=== PATIENT | female | born 1975 | race Caucasian/White ===

== ENCOUNTER 2016-05-10 13:50 | Emergency (ER) | payer MEDICAID ==
[~2016-05-10] VITALS: Wt 76.2 kg
[~2016-05-10 13:50] MED LIST: ACET500T98
[2016-05-10] MEDS ORDERED: EXCED PO (18:00)
[2016-05-10 18:24] LABS: ADD SCAN DIFF NO
--- NOTE | 2016-05-10 18:28 | ERD ---
ER Documentation Chief Complaint Date/Time DATE: 05/10/16 TIME: 18:26 Chief Complaint DIZZINESS AND SYNCOPE SINCE LAST NIGHT. FOR 30 MIN. NO TRAUMA. NO NEURO DEF ROS All systems reviewed and are negative except as per history of present illness. Medications Home Meds Reported Medications Acetaminophen/Aspirin/Caffeine* (Excedrin*) 1 Tab Tab, 1 TAB PO DAILY Y for PRN , TAB 05/10/16 Discontinued Reported Medications Acetaminophen (Tylenol) 500 Mg Tab 06/30/10 Allergies Allergies: Coded Allergies: No Known Drug Allergy (Verified Allergy, Mild, 05/10/16) PMhx/Soc Reviewed in chart. As per HPI History of Surgery: Yes (CHOLECYSTECTOMY) Anesthesia Reaction: No Hx Neurological Disorder: Yes (Headaches) Hx Respiratory Disorders: No Hx Cardiac Disorders: No Hx Psychiatric Problems: No Hx Miscellaneous Medical Probl: No Hx Alcohol Use: No Hx Substance Use: No Hx Tobacco Use: No Smoking Status: Never smoker FmHx No stroke, NV, cancer or subarachnoid Physical Exam Vitals Vital Signs Date Time Temp Pulse Resp B/P Pulse Ox O2 Delivery O2 Flow Rate FiO2 05/10/16 20:45 98.5 88 20 112/72 98 Room Air 05/10/16 19:02 92 20 116/72 98 Room Air 05/10/16 18:00 Nasal Cannula 2 05/10/16 14:03 98.5 102 20 117/65 98 Physical Exam Const: [] Head: Atraumatic Eyes: Normal Conjunctiva ENT: Normal External Ears, Nose and Mouth. Neck: Full range of motion..~ No meningismus. Resp: Clear to auscultation bilaterally Cardio: Regular rate and rhythm, no murmurs Abd: Soft, non tender, non distended. Normal bowel sounds Skin: No petechiae or rashes Back: No midline or flank tenderness Ext: No cyanosis, or edema Neur: Awake and alert Psych: Normal Mood and Affect Result Diagram: 05/10/16 1800 05/10/16 1800 Results 24 hrs Laboratory Tests Test 05/10/16 17:50 05/10/16 18:00 05/10/16 18:21 Urine Amphetamines Screen Negative Urine Bacteria MANY Urine Barbiturates Negative Urine Benzodiazepines Screen Negative Urine Bilirubin NEGATIVE Urine Cannabinoids Negative Urine Clarity CLOUDY Urine Cocaine Screen Negative Urine Color LT. YELLOW Urine Glucose NEGATIVE% Urine Hemoglobin 3+ Urine Ketones NEGATIVE Urine Leukocyte Esterase 1+ Urine Microscopic RBC 25-50/HPF Urine Microscopic WBC 25-50/HPF Urine Nitrite NEGATIVE Urine Opiates Screen Negative Urine Specific [place] 1.010 Urine Squamous Epithelial Cells MANY Urine Total Protein TRACE Urine Urobilinogen 1.0 E.U./dL Urine pH 7.0 Activated Partial Thromboplast Time 27.5Sec Alanine Aminotransferase (ALT/SGPT) 42IU/L Albumin 4.3g/dl Albumin/Globulin Ratio 1.30 Alkaline Phosphatase 81IU/L Anion Gap 19 Aspartate Amino Transf (AST/SGOT) 50IU/L Basophils # 0.010^3/ul Basophils % 0.3% Blood Urea Nitrogen 11mg/dl Calcium Level 8.2mg/dl Carbon Dioxide Level 25mmol/L Chloride Level 102mmol/L Creatinine 0.69mg/dl Direct Bilirubin 0.00mg/dl Eosinophils # 0.210^3/ul Eosinophils % 1.4% Globulin 3.30g/dl Glucose Level 94mg/dl Hematocrit 36.0% Hemoglobin 11.8g/dl INR International Normalized Ratio 1.09 Indirect Bilirubin 0.3mg/dl Lymphocytes # 3.210^3/ul Lymphocytes % 20.9% Mean Corpuscular Hemoglobin 27.0pg Mean Corpuscular Hemoglobin Concent 32.8g/dl Mean Corpuscular Volume 82.4fl Mean Platelet Volume 10.7fl Monocytes # 1.510^3/ul Monocytes % 9.9% Neutrophils # 10.210^3/ul Neutrophils % 67.1% Nucleated Red Blood Cells # 0.010^3/ul Nucleated Red Blood Cells % 0.0/100WBC Platelet Count 43611^3/UL Potassium Level 4.1mmol/L Prothrombin Time 14.1Sec Prothrombin Time Ratio 1.1 Red Blood Count 4.3710^6/ul Red Cell Distribution Width 14.6% Sodium Level 142mmol/L Total Bilirubin 0.3mg/dl Total Protein 7.6g/dl Troponin I < 0.010ng/ml White Blood Count 15.210^3/ul Bedside Glucose 92mg/dL Current Medications Medications (Trade) Dose Ordered Sig/Kasia Route PRN Reason Start Time Stop Time Status Last Admin Dose Admin Metoclopramide HCl (Reglan) 10 mg ONCE ONCE IV 05/10/16 18:30 05/10/16 18:31 DC 05/10/16 18:53 Diphenhydramine HCl (Benadryl) 25 mg ONCE ONCE IV 05/10/16 18:30 05/10/16 18:31 DC 05/10/16 18:53 EKG: Time: 18:20. Sinus rhythm. Ventricular rate 73, normal ID and QRS intervals. No acute ST segment elevation or depression. No axis deviation or ectopy. EP Impression: Normal EKG. IMAGING: PROCEDURE: CT head CLINICAL INDICATION: Headaches TECHNIQUE: Contiguous 2.5 mm axial images were obtained from the vertex to the skull base. No intravenous contrast was administered. The calculated dose length product (DLP) = 554.95 mGy-cm. The CTDlvol = 39.20 mGy. One or more of the following dose reduction techniques were used: Automated exposure control , adjustment of the mA and or KV according to patient size, or use of iterative reconstruction technique. COMPARISON: None FINDINGS: There is no evidence of acute intracranial hemorrhage or acute territorial infarct. No mass or mass effect is seen on this noncontrast study. The ventricles and cisterns are normal in size and configuration. The barboza-white matter differentiation is within normal limits. The visualized paranasal sinuses are normally aerated. The bony calvarium is unremarkable IMPRESSION: Unremarkable unenhanced CT of the brain RPTAT: HH .Fei Multani MD, MD Date Time Electronically viewed and signed by .Fei Multani MD, MD on 05/10/2016 19:02 .W/ Procedures/MDM DOCUMENTS REVIEWED: ED nurse, prior ED, prior records ED COURSE: Reglan 10 mg, Benadryl 25 mg IV REEXAMINATION/REEVALUATION: Time: 21:20. Doing well. Headache resolved. Ambulatory with a steady gait. MEDICAL DECISION MAKING: [] Counseled patient and family regarding diagnostic workup, diagnosis and need for followup. Understands to return to ED if symptoms recur, worsen or any other concerns. Departure Diagnosis: Primary Impression: Cephalgia Headache type: unspecified Headache chronicity pattern: episodic headache Intractability: not intractable Qualified Code: R51 - Nonintractable episodic headache, unspecified headache type Additional Impressions: Dizziness UTI (urinary tract infection) Urinary tract infection type: acute cystitis Hematuria presence: with hematuria Qualified Code: N30.01 - Acute cystitis with hematuria Condition: MARILEE Hinds MD May 10, 2016 18:27
[2016-05-10] MEDS ORDERED: DIPHENHYDRAMINE 50 MG INJ IV ONE (18:30)
[2016-05-10] MEDS ORDERED: METOCLOPRAMIDE 10 MG INJ IV ONE (18:30)
[2016-05-10 18:35] LABS: ALBUMIN 4.3 g/dl (3.3-4.9); CHLORIDE 102 mmol/L (97-110); POTASSIUM 4.1 mmol/L (3.5-5.1); SODIUM 142 mmol/L (135-144)
[2016-05-10 18:36] LABS: BASOPHILS % 0.3 % (0.0-2.0); EOSINOPHILS # 0.2 10^3/ul (0.0-0.5); EOSINOPHILS % 1.4 % (0.0-7.0); HEMOGLOBIN 11.8 g/dl (12.0-16.0); LYMPHOCYTES # 3.2 10^3/ul (0.8-2.9); LYMPHOCYTES % 20.9 % (15.0-51.0); MEAN CORPUSCULAR HGB CONC 32.8 g/dl (32.0-37.0); MEAN CORPUSCULAR VOLUME 82.4 fl (82.0-101.0); MEAN PLATELET VOLUME 10.7 fl (7.4-10.4); MONOCYTE # 1.5 10^3/ul (0.3-0.9); MONOCYTES % 9.9 % (0.0-11.0); NEUTROPHIL # 10.2 10^3/ul (1.6-7.5); NEUTROPHILS % 67.1 % (39.0-77.0); PLATELET COUNT 387 10^3/UL (140-415); RED BLOOD COUNT 4.37 10^6/ul (4.20-5.40); RED CELL DISTRIBUTION WIDTH 14.6 % (11.5-14.5); WHITE BLOOD COUNT 15.2 10^3/ul (4.8-10.8)
[2016-05-10 18:37] LABS: ANION GAP 19 (8-16); BILIRUBIN,INDIRECT 0.3 mg/dl (0-1.1); BILIRUBIN,TOTAL 0.3 mg/dl (0.2-1.3); CARBON DIOXIDE 25 mmol/L (21-31); CREATININE 0.69 mg/dl (0.44-1.00); INR 1.09; PARTIAL THROMBOPLASTIN TIME 27.5 Sec (25.0-35.0); PROTIME 14.1 Sec (12.2-14.2); PT RATIO 1.1
[2016-05-10 18:38] LABS: ALANINE AMINOTRANSFERASE 42 IU/L (13-69); ALKALINE PHOSPHATASE 81 IU/L (42-121); ASPARTATE AMINO TRANSFERASE 50 IU/L (15-46); BLOOD UREA NITROGEN 11 mg/dl (7-20); CALCIUM 8.2 mg/dl (8.4-10.2); GLUCOSE 94 mg/dl (70-220); TOTAL PROTEIN 7.6 g/dl (6.1-8.1)
[2016-05-10 18:42] LABS: ADD UMIC YES; URINE BILIRUBIN (Dip) NEGATIVE (NEGATIVE); URINE BLOOD (Dip) 3+ (NEGATIVE); URINE COLOR LT. YELLOW (YELLOW); URINE GLUCOSE (Dip) NEGATIVE (NEGATIVE); URINE KETONES (Dip) NEGATIVE (NEGATIVE); URINE LEUKOCYTE ESTERASE (Dip) 1+ (NEGATIVE); URINE NITRITE (Dip) NEGATIVE (NEGATIVE); URINE TOTAL PROTEIN (Dip) TRACE (NEGATIVE); URINE UROBILINOGEN (Dip) 1.0 E.U./dL (0.1-1.0)
--- NOTE | 2016-05-10 18:50 | RADRPT ---
PROCEDURE: XR Chest. CLINICAL INDICATION: Chest pain TECHNIQUE: Chest AP portable. COMPARISON: No comparison available. FINDINGS: The mediastinal structures are unremarkable. The heart is normal in size and configuration. The pu lmonary vascularity is normal. The lung [place] are unremarkable. No consolidation is identified. The pleural spaces are unremarkable. The axial skeleton is unremarkable. IMPRESSION: No active intrathoracic disease. RPTAT: [facility] .Rahul Silva MD, MD Date Time Electronically viewed and signed by .Rahul Silva MD, MD on 05/10/2016 18:49 .B/
[2016-05-10 18:53] LABS: TROPONIN-I < 0.010 ng/ml (0.00-0.12)
--- NOTE | 2016-05-10 19:02 | RADRPT ---
PROCEDURE: CT head CLINICAL INDICATION: Headaches TECHNIQUE: Contiguous 2.5 mm axial images were obtained from the vertex to the skull base. No int ravenous contrast was administered. The calculated dose length product (DLP) = 554.95 mGy-cm. The CTDlvol = 39.20 mGy. One or more of the following dose reduction techniques were used: Automated e xposure control, adjustment of the mA and or KV according to patient size, or use of iterative recon struction technique. COMPARISON: None FINDINGS: There is no evidence of acute intracranial hemorrhage or acute territorial infarct. No mass or mass effect is seen on this noncontrast study. The ventricles and cisterns are normal in size and confi guration. The barboza-white matter differentiation is within normal limits. The visualized paranasal sinuses are normally aerated. The bony calvarium is unremarkable IMPRESSION: Unremarkable unenhanced CT of the brain RPTAT: HH .Fei Multani MD, MD Date Time Electronically viewed and signed by .Fei Multani MD, on 05/10/2016 19:02 .W/
[2016-05-10 19:13] LABS: BARBITURATES Negative (NEGATIVE); BENZODIAZEPINES Negative (NEGATIVE); CANNABINOIDS Negative (NEGATIVE)
[2016-05-10 19:19] LABS: COCAINE Negative (NEGATIVE); OPIATES Negative (NEGATIVE)
[2016-05-10 19:20] LABS: BACTERIA,URINE MANY; SQUAMOUS EPITHELIAL CELL,UR MANY; URINE RBCS 25-50 /HPF (0)
[2016-05-10] MEDS ORDERED: NITR-58 PO (21:43)
[2016-05-10 22:22] VITALS: BP 102/63; PULSE 83; RESP 16; TEMP 98.7
== END 2016-05-10 22:24 | disposition home or self-care (01) ==
LOC: E/R 13:50
DX: R51 Headache (principal); N30.01 Acute cystitis with hematuria; R07.9 Chest pain, unspecified; R40.2142 Coma scale, eyes open, spontaneous, at arrival to emergency department; R40.2252 Coma scale, best verbal response, oriented, at arrival to emergency department; R40.2342 Coma scale, best motor response, flexion withdrawal, at arrival to emergency department
CPT/HCPCS: 36415; 70450; 71010; 80053; 80307; 81001; 82962; 84484; 85025; 85610; 85730; 87086; 93005; 96374; 96375; J1200; J2765; Z7502; 81003

== ENCOUNTER 2018-05-27 10:01 | Emergency (ER) | payer MEDICAID ==
[~2018-05-27] VITALS: Ht 167.6 cm; Wt 72.5 kg
[~2018-05-27 10:01] MED LIST changes: -ACET500T98; +EXCED PO; +NITR-58 PO
[2018-05-27 10:04] VITALS: BP 110/63; PULSE 92; RESP 18; Ht 167.6 cm; Wt 72.5 kg
[2018-05-27] MEDS ORDERED: ONDANSETRON (ODT) 4 MG TAB ODT STA (10:59)
[2018-05-27] MEDS ORDERED: IBUPROFEN 800 MG TAB PO ONE (11:00)
[2018-05-27] MEDS ORDERED: IBUP-1561 PO (12:19)
[2018-05-27] MEDS ORDERED: TAMS-14 PO (12:19)
[2018-05-27] MEDS ORDERED: ACET-141 PO (12:19)
--- NOTE | 2018-05-27 12:21 | ERD ---
ER Documentation Chief Complaint Chief Complaint ABD PAIN WITH NAUSEA X 1 DAY ROS All systems reviewed and are negative except as per history of present illness. Medications Home Meds Active Scripts Acetaminophen* (Acetaminophen*) 500 MG Extra Strength Tablet, 500 MG PO Q4H PRN for PAIN AND OR ELEVATED TEMP, #30 TAB Prov:JAMSHID FABIAN DO 05/27/18 Ibuprofen* (Motrin*) 400 Mg Tab, 400 MG PO Q6H PRN for PAIN, #30 TAB Prov:JAMSHID FABIAN DO 05/27/18 Tamsulosin Hcl* (Flomax*) 0.4 Mg Cap.er.24h, 0.4 MG PO DAILY for kidney stone for 14 Days, #14 CAP Prov:JAMSHID FABIAN DO 05/27/18 Nitrofurantoin Monohyd Macrocr* (Macrobid*) 100 Mg Capsr, 100 MG PO HS for 7 Days, CAP Prov:MARILEE FLEMING MD 05/10/16 Reported Medications Acetaminophen/Aspirin/Caffeine* (Excedrin*) 1 Tab Tab, 1 TAB PO DAILY PRN for PRN, TAB 05/10/16 Allergies Allergies: Coded Allergies: No Known Drug Allergy (Verified Allergy, Mild, 05/10/16) PMhx/Soc History of Surgery: Yes (CHOLECYSTECTOMY) Anesthesia Reaction: No Hx Neurological Disorder: Yes (Headaches) Hx Respiratory Disorders: No Hx Cardiac Disorders: No Hx Psychiatric Problems: No Hx Miscellaneous Medical Probl: No Hx Alcohol Use: No Hx Substance Use: No Hx Tobacco Use: No Smoking Status: Never smoker Physical Exam Vitals Vital Signs Date Temp Pulse Resp B/P (MAP) Pulse Ox O2 O2 Flow FiO2 Time Delivery Rate 05/27/18 98.1 92 18 110/63 99 10:04 (79) Physical Exam Const: No acute distress Head: Atraumatic Eyes: Normal Conjunctiva ENT: Normal External Ears, Nose and Mouth. Neck: Full range of motion. No meningismus. Resp: Clear to auscultation bilaterally Cardio: Regular rate and rhythm, no murmurs Abd: Soft, non tender, non distended. Normal bowel sounds Skin: No petechiae or rashes Back: No midline or flank tenderness Ext: No cyanosis, or edema Neur: Awake and alert Psych: Normal Mood and Affect Result Diagram: 05/27/18 1119 05/27/18 1119 Results 24 hrs Laboratory Tests Test 05/27/18 11:05 05/27/18 11:19 POC Beta HCG, Qualitative NEGATIVE White Blood Count 15.3 10^3/ul Red Blood Count 4.89 10^6/ul Hemoglobin 13.0 g/dl Hematocrit 40.2 % Mean Corpuscular Volume 82.2 fl Mean Corpuscular Hemoglobin 26.6 pg Mean Corpuscular Hemoglobin Concent 32.3 g/dl Red Cell Distribution Width 14.2 % Platelet Count 375 10^3/UL Mean Platelet Volume 10.3 fl Immature Granulocytes % 0.700 % Neutrophils % 75.9 % Lymphocytes % 14.9 % Monocytes % 5.9 % Eosinophils % 2.2 % Basophils % 0.4 % Nucleated Red Blood Cells % 0.0 /100WBC Immature Granulocytes # 0.100 10^3/ul Neutrophils # 11.6 10^3/ul Lymphocytes # 2.3 10^3/ul Monocytes # 0.9 10^3/ul Eosinophils # 0.3 10^3/ul Basophils # 0.1 10^3/ul Nucleated Red Blood Cells # 0.0 10^3/ul Urine Color YELLOW Urine Clarity SLIGHTLY CLOUDY Urine pH 5.0 Urine Specific [place] 1.019 Urine Ketones NEGATIVE mg/dL Urine Nitrite NEGATIVE mg/dL Urine Bilirubin NEGATIVE mg/dL Urine Urobilinogen NEGATIVE mg/dL Urine Leukocyte Esterase NEGATIVE Vladimir/ul Urine Microscopic RBC 8 /HPF Urine Microscopic WBC 2 /HPF Urine Squamous Epithelial Cells FEW /HPF Urine Mucus FEW /HPF Urine Hemoglobin 2+ mg/dL Urine Glucose NEGATIVE mg/dL Urine Total Protein NEGATIVE mg/dl Sodium Level 139 mmol/L Potassium Level 4.4 mmol/L Chloride Level 102 mmol/L Carbon Dioxide Level 25 mmol/L Anion Gap 12 Blood Urea Nitrogen 12 mg/dl Creatinine 0.62 mg/dl Est Glomerular Filtrat Rate mL/min > 60 mL/min Glucose Level 105 mg/dl Calcium Level 8.6 mg/dl Total Bilirubin 0.1 mg/dl Direct Bilirubin 0.00 mg/dl Indirect Bilirubin 0.1 mg/dl Aspartate Amino Transf (AST/SGOT) 25 IU/L Alanine Aminotransferase (ALT/SGPT) 24 IU/L Alkaline Phosphatase 86 IU/L Total Protein 8.5 g/dl Albumin 4.6 g/dl Globulin 3.90 g/dl Albumin/Globulin Ratio 1.17 Lipase 60 U/L Current Medications Medications Dose Sig/Kasia Start Time Status Last (Trade) Ordered Route PRN Stop Time Admin Dose Reason Admin Ibuprofen 800 mg ONCE ONCE 05/27/18 DC 05/27/18 (Motrin) PO 11:00 11:07 05/27/18 11:01 Ondansetron 4 mg ONCE STAT 05/27/18 DC 05/27/18 HCl (Zofran ODT 10:59 11:07 Odt) 05/27/18 11:01 Departure Diagnosis: Primary Impression: Abdominal pain Abdominal location: unspecified location Qualified Codes: R10.9 - Unspecified abdominal pain Condition: Fair Patient Instructions: Kidney Stone (Urine) Referrals: [facility] YOU HAVE RECEIVED A MEDICAL SCREENING EXAM AND THE RESULTS INDICATE THAT YOU DO NOT HAVE A CONDITION THAT REQUIRES URGENT TREATMENT IN THE EMERGENCY DEPARTMENT. FURTHER EVALUATION AND TREATMENT OF YOUR CONDITION CAN WAIT UNTIL YOU ARE SEEN IN YOUR DOCTORS OFFICE WITHIN THE NEXT 1-2 DAYS. IT IS YOUR RESPONSIBILITY TO MAKE AN APPOINTMENT FOR FOLOW-UP CARE. IF YOU HAVE A PRIMARY DOCTOR --you should call your primary doctor and schedule an appointment IF YOU DO NOT HAVE A PRIMARY DOCTOR YOU CAN CALL OUR PHYSICIAN REFERRAL HOTLINE AT IF YOU CAN NOT AFFORD TO SEE A PHYSICIAN YOU CAN CHOSE FROM THE FOLLOWING [facility] [address] [facility] [facility]. [facility] [address] [facility] [facility] [address] [facility] [facility] [address] [facility]. [facility] [id number] [facility] [facility]. [address] Additional Instructions: Llame al doctor MAANA y saima shanti LAUREN PARA DENTRO DE 1-2 JAMES.Dgale a la secretaria que nosotros le instruimos hacer esta lauren.Avise o llame si francisco condicin se empeora antes de la lauren. Regresa aqui si peor o no mejor. JAMSHID FABIAN DO May 27, 2018 12:21
== END 2018-05-27 12:32 | disposition home or self-care (01) ==
LOC: FTE 10:01
DX: R10.9 Unspecified abdominal pain (principal); R11.0 Nausea
CPT/HCPCS: 74019; 80053; 81001; 81025; 83690; 85025; Z7502; Z7610